=== PATIENT | female | born 1975 | race Caucasian/White ===

== ENCOUNTER 2018-02-10 12:54 | Outpatient (CLI) | payer MEDICAID, SELFPAY ==
--- NOTE | 2018-02-10 12:56 | DI.REPORT_ITS ---
SYMPTOMS/DIAGNOSIS: PELVIC PAIN IN FEMALE, R10.2, ? L OVARIAN CYST PELVIC ULTRASOUND: Transabdominal and transvaginal examination was performed. The uterus measures 8.8 cm long x 4.4 cm AP x 5.1 cm transverse. The endometrial stripe is within normal limits at 0.7 cm. No myometrial mass is present. The right ovary measures 3 x 2 x 2.7 cm. There are follicular cysts present. There is normal blood flow to the right ovary. No evidence of torsion is present. The left ovary measures 2.7 x 1.8 x 2.5 cm. There are small follicular cysts present. There is normal blood flow to the left ovary. No evidence of torsion is seen. No free pelvic fluid or hydronephrosis is present. Incidental note is made of a stone within the gallbladder. IMPRESSION: 1. Negative pelvic ultrasound. 2. Cholelithiasis.
== END 2018-02-10 12:55 ==
PROVIDERS: PCP Physician Assistant Medical; Visit Provider Nurse Practitioner Women's Health
DX: R10.2 Pelvic and perineal pain (principal); N83.01 Follicular cyst of right ovary; N83.02 Follicular cyst of left ovary; K80.20 Calculus of gallbladder without cholecystitis without obstruction
CPT/HCPCS: 76830; 76856

== ENCOUNTER 2018-04-20 17:56 | Emergency (ER) | payer MEDICAID, SELFPAY ==
[2018-04-20 18:08] VITALS: PULSE 82; RESP 18; TEMP 37.1; O2SAT 97
[2018-04-20 18:13] VITALS: BP 105/49; PULSE 83; RESP 18; TEMP 37.1; O2SAT 97
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
[2018-04-20] MEDS: Amoxicillin 875/Clav. 125 TAB PO (18:38)
[2018-04-20] MEDS: Benzonatate 100 MG CAP PO (18:38)
== END 2018-04-20 18:51 | disposition home or self-care (01) ==
LOC: ER 18:25
PROVIDERS: Emergency Provider Emergency Medicine
DX: J20.9 Acute bronchitis, unspecified (principal); F17.210 Nicotine dependence, cigarettes, uncomplicated
CPT/HCPCS: 99283

== ENCOUNTER 2018-09-29 19:59 | Emergency (ER) | payer MEDICAID, SELFPAY ==
[2018-09-29 20:03] VITALS: BP 144/102; PULSE 82; RESP 20; TEMP 36.7; O2SAT 96
[2018-09-29] MEDS: Sulfameth/Trimeth DS TAB 1 TAB PO (20:13)
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
== END 2018-09-29 20:20 | disposition home or self-care (01) ==
LOC: ER 20:13
PROVIDERS: Emergency Provider Emergency Medicine; PCP Specialist/Technologist Athletic Trainer
DX: L02.01 Cutaneous abscess of face (principal)
CPT/HCPCS: 10060; 36415; 80053; 83690; 87040; 87077; 96361; 96365; 96375; 99283; 99284; 83605; 85025; 87070; 87186; 87205; J1885

== ENCOUNTER 2018-09-30 10:13 | Emergency (ER) | payer MEDICAID, SELFPAY ==
[2018-09-30 10:16] VITALS: BP 150/104; PULSE 91; RESP 16; TEMP 36.7; O2SAT 95
[2018-09-30] MEDS: Normal Saline 1,000 ML 1000 ML IV (10:56)
[2018-09-30] MEDS: Normal Saline Flush 10 ML SYR IVP (10:56)
[2018-09-30 11:00] LABS: Lactate-non-spesis 0.6 mmol/l (0.6-1.4)
[2018-09-30 11:04] LABS: Abs Immature Grans 0.02 k/cumm (0.0-0.09); Absolute Basophil Count 0.03 k/cumm (0.0-0.2); Absolute Eosinophil Count 0.16 k/cumm (0.0-0.7); Absolute Lymphocyte Count 1.09 k/cumm (1.2-3.4); Absolute Monocyte Count 0.52 k/cumm (0.11-0.7); Absolute Neutrophil Count 7.64 k/cumm (1.2-6.7); Basophils % 0.3; Eosinophils % 1.7; HCT 45.6 % (36.0-46.0); HGB 15.3 g/dL (12.0-15.5); Immature Grans % 0.2; Lymphocytes % 11.5; Mean Corp. HGB Concentration 33.6 g/dL (32.0-36.0); Mean Corpuscular Volume 89.4 fL (80-95); Monocytes % 5.5; Neutrophils % 80.8; Platelet Count 288 x1000/uL (130-400); RBC Distribution Width 14.2 % (11.7-14.6); White Blood Cell Count 9.46 k/cumm (4.4-10.8)
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
[2018-09-30 11:20] LABS: ALT 75 U/L (12-78); AST 36 U/L (15-37); Albumin 3.9 g/dL (3.4-5.0); Alkaline Phosphatase 85 U/L (46-116); Anion Gap 12.1 mmol/L (3-11); BUN 10 mg/dL (7-18); Bilirubin, Total 0.4 mg/dL (0.2-1.0); CO2 25.9 mmol/L (21.0-32.0); CREATININE 0.75 mg/dL (0.55-1.02); Chloride 104 mmol/L (98-107); Glucose 115 mg/dL (70-100); Lipase 88 U/L (73-393); Potassium 3.5 mmol/L (3.5-5.1); Sodium 142 mmol/L (136-145); Total Protein 7.6 g/dL (6.4-8.2)
[2018-09-30 11:23] LABS: Calcium 9.2 mg/dL (8.5-10.1)
[2018-09-30] MEDS: VANCOMYCIN 1,000 MG in Normal Saline 250 ML 166.6666 MG IVPB (11:31)
[2018-09-30] MEDS: Ketorolac 30 MG/ML VIAL IM (11:34)
[2018-09-30] MEDS: LORazepam 0.5 MG TAB PO (11:35)
[2018-09-30] MEDS: Lidocaine/Epinephri/Tetracaine Topical Gel 3 ML TP (12:09)
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
== END 2018-09-30 13:40 | disposition home or self-care (01) ==
PROVIDERS: Emergency Provider Nurse Practitioner Family; PCP Specialist/Technologist Athletic Trainer
DX: L02.01 Cutaneous abscess of face (principal); B95.62 Methicillin resistant Staphylococcus aureus infection as the cause of diseases classified elsewhere
CPT/HCPCS: 10060; 36415; 80053; 83690; 87040; 87077; 96361; 96365; 96375; 99252; 99284; 83605; 85025; 87070; 87186; 87205; J1885

== ENCOUNTER 2019-01-24 12:19 | Emergency (ER) | payer MEDICAID, SELFPAY ==
[2019-01-24] VITALS (12 sets, daily range): BP systolic 130–155; BP diastolic 79–112; PULSE 64–80; RESP 6–18; TEMP 36.1–36.7; O2SAT 96–99
--- NOTE | 2019-01-24 12:57 | NUR.NOTE ---
pt not in the waiting room Nursing Note:
[2019-01-24] MEDS: CLINDAMYCIN 600 MG/50 ML BAG 100 MG IVPB (13:32)
[2019-01-24] MEDS: Meclizine 25 MG TAB PO (13:32)
[2019-01-24] MEDS: Normal Saline 1,000 ML 1000 ML IV (13:33)
[2019-01-24 13:51] LABS: Abs Immature Grans 0.01 k/cumm (0.0-0.09); Absolute Basophil Count 0.07 k/cumm (0.0-0.2); Absolute Eosinophil Count 0.29 k/cumm (0.0-0.7); Absolute Lymphocyte Count 1.99 k/cumm (1.2-3.4); Absolute Monocyte Count 0.48 k/cumm (0.11-0.7); Absolute Neutrophil Count 6.74 k/cumm (1.2-6.7); Basophils % 0.7; HCT 47.8 % (36.0-46.0); HGB 16.4 g/dL (12.0-15.5); Immature Grans % 0.1; Lymphocytes % 20.8; Mean Corp. HGB Concentration 34.3 g/dL (32.0-36.0); Mean Corpuscular Volume 90.4 fL (80-95); Mean Platelet Volume 8.7 fL (8.0-11.0); Neutrophils % 70.4; Platelet Count 292 x1000/uL (130-400); RBC 5.29 m/cumm (4.00-5.20); RBC Distribution Width 14.5 % (11.7-14.6); White Blood Cell Count 9.58 k/cumm (4.4-10.8)
[2019-01-24 14:13] LABS: ALT 23 U/L (12-78); AST 17 U/L (15-37); Albumin 4.3 g/dL (3.4-5.0); Alkaline Phosphatase 104 U/L (46-116); Anion Gap 8.9 mmol/L (3-11); BUN 8 mg/dL (7-18); Bilirubin, Total 0.5 mg/dL (0.2-1.0); CO2 28.1 mmol/L (21.0-32.0); CREATININE 0.66 mg/dL (0.55-1.02); Calcium 9.3 mg/dL (8.5-10.1); Chloride 103 mmol/L (98-107); Glucose 95 mg/dL (70-100); Potassium 3.9 mmol/L (3.5-5.1); Sodium 140 mmol/L (136-145); Total Protein 8.3 g/dL (6.4-8.2)
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
== END 2019-01-24 16:36 | disposition home or self-care (01) ==
PROVIDERS: Emergency Provider Student in an Organized Health Care Education/Training Program; PCP Nurse Practitioner Family
DX: L03.811 Cellulitis of head [any part, except face] (principal); L02.11 Cutaneous abscess of neck; R42 Dizziness and giddiness
CPT/HCPCS: 36415; 80053; 96361; 96365; 96366; 99284; 85025

== ENCOUNTER 2019-07-09 09:57 | Emergency (ER) | payer MEDICAID, SELFPAY ==
[2019-07-09 10:11] VITALS: BP 165/115; PULSE 83; RESP 20; TEMP 37.4; O2SAT 99
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
[2019-07-09] MEDS: Ibuprofen 600 MG TAB PO (10:38)
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
== END 2019-07-09 10:55 | disposition home or self-care (01) ==
PROVIDERS: Emergency Provider Emergency Medicine; PCP Nurse Practitioner Family
DX: S80.01XA Contusion of right knee, initial encounter (principal); X50.1XXA Overexertion from prolonged static or awkward postures, initial encounter; M25.561 Pain in right knee
CPT/HCPCS: 99283

== ENCOUNTER 2019-07-09 11:44 | Emergency (ER) | payer MEDICAID, SELFPAY ==
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
[2019-07-09 11:53] VITALS: BP 171/83; PULSE 84; TEMP 36.2; O2SAT 100
[2019-07-09 13:29] VITALS: BP 171/83; PULSE 84; RESP 18; TEMP 36.2; O2SAT 100
--- NOTE | 2019-07-09 14:43 | PDOC.MHCN ---
Date of service: 07/09/19 Time of Service: 14:43 Mental Health Crisis Note Presenting Issue How did you arrive at the ED and why did you come: S arrived to the ER independently after this clinician spoke with her counselor. Precipitating Factors S denied SI and HI. She does not appear to be having a thought disturbance. Disposition BEHAVIOR: S is cooperative and engaged. She is expressing a great deal of stress relating to her living arrangement which also affects her pet. She has had some other significant stressors and the most recent was some sort of cyst or blood clotting in her knee that she learned about today. EYE CONTACT: Eye contact is normal. MOOD: S's mood is stressed and anxious. AFFECT: S's affect is tearful and normal. APPETITE: S reported that her appetite is normal. SLEEP(trouble falling/staying asleep: S reported her sleep has been improving. Plan S will increase her visits with her supportive employment case manager. I will ask for her supportive employment case manager to check in with Pia Cedillo should she need additional supports. She will be referred to [facility] for a PCP follow up. Encouraged S to call [facility] should she need additional supports. Signature Clinician's Name/Title: Shaye Mao MS, [facility] Emergency Services Clinician
== END 2019-07-09 13:30 | disposition home or self-care (01) ==
PROVIDERS: Emergency Provider Student in an Organized Health Care Education/Training Program; PCP Nurse Practitioner Family
DX: F32.9 Major depressive disorder, single episode, unspecified (principal); F43.9 Reaction to severe stress, unspecified; Z65.3 Problems related to other legal circumstances; Z63.8 Other specified problems related to primary support group
CPT/HCPCS: 99283